=== PATIENT | male | born 1975 | race African-American/Black ===

== ENCOUNTER 2017-09-10 10:05 | Outpatient (CLI) | payer OTHER | END 2017-09-10 10:08 | disposition short-term general hospital (02) | LOC: AMB 10:05 | DX: R40.20 Unspecified coma (principal); F10.129 Alcohol abuse with intoxication, unspecified | CPT/HCPCS: A0425; A0427 ==

== ENCOUNTER 2017-09-10 10:16 | Emergency (ER) | payer OTHER | END 2017-09-10 10:45 | LOC: ED 10:16 → EDBD 10:16 → ED 10:45 | DX: F10.129 Alcohol abuse with intoxication, unspecified (principal) | CPT/HCPCS: 99281; 99282 ==